=== PATIENT | female | born 1965 | race Caucasian/White ===

== ENCOUNTER 2017-04-28 17:11 | Inpatient (IN) | payer OTHER ==
[2017-04-28 19:22] VITALS: BMI 34.6
--- NOTE | 2017-04-28 20:41 | HP ---
COWS - Scale Resting Pulse: 0= [place] 80 or Below Sweatin= Chills/Flushing Restless Observation: 1= Difficult to Sit Still Pupil Size: 1= Pupils >than Normal Bone or Joint Aches: 1= Mild Discomfort Runny Nose/ Eye Tearin= Runny Nose/Eyes GI Upset > 30mins: 2= Nausea/Diarrhea Tremor Observation: 1= Tremor [place], Not Seen Yawning Observation: 0= None Anxiety or Irritability: 2=Irritable/Anxious Goose Flesh Skin: 3=Piloerection COWS Score: 14 Admission ROS S - HPI Chief Complaint: WITHDRAWAL SYMPTOMS Allergies/Adverse Reactions: Allergies Allergy/AdvReac Type Severity Reaction Status Date / Time aspirin Allergy Verified 07/01/12 17:32 ibuprofen [From Motrin] Allergy Verified 06/30/12 14:56 History of Present Illness: 51 y.o. woman with a 1 yr history of heroin dependence is here seeking detox for the first time. Exam Limitations: Physical Impairment (Ambulates with the use of a cane.) - Ebola screening Have you traveled outside of the country in the last 21 days: No (N) Have you had contact with anyone from an Ebola affected area: No Have you been sick,other than usual withdrawal symptoms: No Do you have a fever: No - Review of Systems Constitutional: Night Sweats, Changes in sleep EENT: reports: Blurred Vision, Tearing, Nose Congestion Respiratory: reports: No Symptoms reported Cardiac: reports: No Symptoms Reported GI: reports: Nausea, Abdominal cramping Musculoskeletal: reports: Back Pain Integumentary: reports: No Symptoms Reported Neuro: reports: Numbness Endocrine: reports: No Symptoms Reported Hematology: reports: No Symptoms Reported Psychiatric: reports: Orientated x3, Anxious, Depressed Other Systems: Reviewed and Negative Patient History - Patient Medical History Hx Anemia: No Hx Asthma: Yes Hx Chronic Obstructive Pulmonary Disease (COPD): No Hx Cancer: No Hx Cardiac Disorders: No Hx Congestive Heart Failure: No Hx Hypertension: Yes Hx Hypercholesterolemia: No Hx Pacemaker: No HX Cerebrovascular Accident: No Hx Seizures: No Hx Dementia: No Hx Diabetes: No Hx Gastrointestinal Disorders: No Hx Liver Disease: No Hx Genitourinary Disorders: No Hx Sexually Transmitted Disorders: No Hx Renal Disease (ESRD): No Hx Thyroid Disease: No Hx Human Immunodeficiency Virus (HIV): No Hx Hepatitis C: No Hx Depression: Yes Hx Suicide Attempt: No Hx Bipolar Disorder: No Hx Schizophrenia: No - Patient Surgical History Past Surgical History: Yes Hx Neurologic Surgery: No Hx Cataract Extraction: No Hx Cardiac Surgery: No Hx Lung Surgery: No Hx Breast Surgery: No Hx Breast Biopsy: No Hx Abdominal Surgery: No Hx Appendectomy: No Hx Cholecystectomy: No Hx Genitourinary Surgery: No Hx Section: Yes (X2) Hx Orthopedic Surgery: Yes (RIGHT KNEE ARTHROSCOPY,RIGHT HAND SURGERY) Hx Hysterectomy: No Anesthesia Reaction: No - PPD History Previous Implant?: Yes Documented Results: Negative w/o proof PPD to be Administered?: Yes - Reproductive History Patient is a Female of Child Bearing Age (11 -55 yrs old): Yes Last Menstrual Period: 06/18/12 Patient : No - Smoking Cessation Smoking history: Current every day smoker Have you smoked in the past 12 months: Yes Aproximately how many cigarettes per day: 3 Hx Chewing Tobacco Use: No Initiated information on smoking cessation: Yes 'Breaking Loose' booklet given: 04/28/17 - Substance & Tx. History Hx Alcohol Use: No Hx Substance Use: Yes Substance Use Type: Heroin Hx Substance Use Treatment: No - Substances Abused Heroin Route: Inhalation Frequency: Daily Amount used: 8 bags Age of first use: 50 Date of Last Use: 04/28/17 Family Disease History - Family Disease History Family Disease History: Diabetes: Grandparent, Father (), Mother ( ), Heart Disease: Grandparent, [place]: Father, Mother, Brother (Brain [place] ), Other: Sister (Heroin dependence ) Admission Physical Exam [facility] - Vital Signs Vital Signs: Vital Signs - 24 hr 04/28/17 19:17 Temperature 98.2 F Pulse Rate 76 Respiratory 20 Rate Blood Pressure 122/77 - Physical General Appearance: Yes: Tremorous, Irritable, Anxious HEENTM: Yes: Hearing grossly Normal, Normocephalic, Normal Voice Respiratory: Yes: Chest Non-Tender, Lungs Clear, Normal Breath Sounds, No Respiratory Distress, No Accessory Muscle Use Neck: Yes: No masses,lesions,Nodules, Trachea in good position Breast: Yes: Breast Exam Deferred Cardiology: Yes: Regular Rhythm, Regular Rate Abdominal: Yes: Non Tender, Flat, Soft Genitourinary: Yes: Other (No complaints reported) Back: Yes: Normal Inspection Musculoskeletal: Yes: Back pain, Joint swelling (Right knee), Other (Unsteady gait; ambulates with the use of a cane.) 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 NML intact, Alert, Motor Strength 5/5, Normal Mood /Affect, Normal Response Integumentary: Yes: Normal Color, Dry, Warm Lymphatic: Yes: Within Normal Limits - Diagnostic (1) Opioid dependence with withdrawal Current Visit: Yes Status: Chronic (2) Asthma Current Visit: Yes Status: Chronic (3) Hypertension Current Visit: Yes Status: Chronic (4) Nicotine dependence Current Visit: Yes Status: Chronic (5) Chronic knee pain Current Visit: Yes Status: Chronic (6) Back pain Current Visit: Yes Status: Chronic (7) Unsteady gait Current Visit: Yes Status: Chronic Cleared for Admission [facility] - Detox or Rehab [facility] Level of Care: Medically Managed Detox Regimen/Protocol: Methadone [facility] Breath Alcohol Content Breath Alcohol Content: 0 Urine Pregancy Test - Result Urine Test Results: Negative- NO Line Present Urine Drug Screen - Results Drug Screen Negative: No Urine Drug Screen Results: OPI-Opiates, BZO-Benzodiazepines, MTD-Methadone
[2017-04-28] MEDS ORDERED: guaiFENesin/D-METHORPHAN HB 10 ML UNIT-DOSE CUPS PO PRN (20:52)
[2017-04-28] MEDS ORDERED: diphenhydrAMINE HCL 50 MG CAPSULE PO PRN (20:52)
[2017-04-28] MEDS ORDERED: MAG HYDROX/AL HYDROX/SIMETH 30 ML UNIT-DOSE CUP PO PRN (20:52)
[2017-04-28] MEDS ORDERED: MAGNESIUM CITRATE 300 ML BOTTLE PO PRN (20:52)
[2017-04-28] MEDS ORDERED: METHADONE HCL 10 MG TABLET (FOR DETOX USE ONLY) PO ONE ×3 (20:52→23:30)
[2017-04-28] MEDS ORDERED: MENTHOL/PHENOL 1 EACH UD MM PRN (20:52)
[2017-04-28] MEDS ORDERED: MAGNESIUM HYDROX 2400MG/30ML ORAL SUSPENSION 30 ML CUP PO PRN (20:52)
[2017-04-28] MEDS ORDERED: ACETAMINOPHEN 325 MG TABLET (FP) PO PRN (20:52)
[2017-04-28] MEDS ORDERED: hydrOXYzine PAMOATE 50 MG CAPSULE (FP) PO PRN (20:52)
[2017-04-28] MEDS ORDERED: LOPERAMIDE HCL 2 MG CAPSULE PO PRN (20:52)
[2017-04-28] MEDS ORDERED: P-EPHED 60MG/TRIPROLIDI 2.5MG TABLET PO PRN (20:52)
[2017-04-28] MEDS: diazePAM 5 MG TABLET PO PRN (23:34)
[2017-04-29] MEDS: THIAMINE HCL 100 MG TABLET (FP) PO SCH ×2 (00:01→22:32)
[2017-04-29] MEDS ORDERED: METHADONE HCL 10 MG TABLET (FOR DETOX USE ONLY) PO ONE (10:00)
[2017-04-29 10:18] LABS: MCH 29.4 pg (25.7-33.7); MCHC 32.4 g/dl (32.0-36.0); MEAN CELL VOLUME 90.9 fl (80-96); MEAN PLT VOLUME 9.4 fl (7.5-11.1); PLATELET COUNT 239 K/MM3 (134-434); RDW 14.5 % (11.6-15.6); WHITE BLOOD COUNT 7.1 K/mm3 (4.0-10.0)
--- NOTE | 2017-04-29 10:39 | CONSULT ---
[facility] Psychiatric Consult - Data Date of interview: 04/29/17 Admission source: [facility] Identifying data: Lisa is 51 years old female with no psychiatoiric hospitalization history intoxicated with: Opioids, Methadone, Benzo and Nicotine Substance Abuse History: Urine Drug Screen Results: OPI-Opiates, BZO- Benzodiazepines, MTD-Methadone. - Smoking Cessation. Smoking history: Current every day smoker. Have you smoked in the past 12 months: Yes. Aproximately how many cigarettes per day: 3. Hx Chewing Tobacco Use: No. Initiated information on smoking cessation: Yes. 'Breaking Loose' booklet given: . - Substance & Tx. History. Hx Alcohol Use: No. Hx Substance Use: Yes. Substance Use Type: Heroin. Hx Substance Use Treatment: No. - Substances Abused. Heroin. Route: Inhalation. Frequency: Daily. Amount used: 8 bags. Age of first use: 50. Date of Last Use: 04/28/17 Medical History: Asthma, LBP, HTN, Unstable gait, Right Knee s/p surgery Psychiatric History: Denies past psychiatric management Physical/Sexual Abuse/Trauma History: Denies Additional Comment: Urine Drug Screen Results: OPI-Opiates, BZO-Benzodiazepines , MTD-Methadone Mental Status Exam - Mental Status Exam Alert and Oriented to: Person Cognitive Function: Fair Patient Appearance: Unkempt Mood: Sad Affect: Flat Patient Behavior: Sedated Speech Pattern: Delayed Voice Loudness: Mildly Soft/Quiet Thought Process: Circumstantial Thought Disorder: Being Controlled Hallucinations: Denies Suicidal Ideation: Denies Homicidal Ideation: Denies Insight/Judgement: Fair Sleep: Difficulty falling asleep Appetite: Weight gain Muscle strength/Tone: Mild Hypotonicity Gait/Station: Deferred Additional Comments: Urine Drug Screen Results: OPI-Opiates, BZO-Benzodiazepines , MTD-Methadone. Observation. Detox Unmit Care Protocol Psychiatric Findings - Problem List ([place] 1, 2,3) (1) Nicotine dependence Current Visit: Yes Status: Chronic (2) Opioid dependence with withdrawal Current Visit: Yes Status: Chronic (3) Methadone misuse Current Visit: Yes Status: Acute (4) Benzodiazepine abuse Current Visit: Yes Status: Acute (5) Drug-induced mood disorder Current Visit: Yes Status: Suspected - Initial Treatment Plan Initial Treatment Plan: Observation. Detox Unmit Care Protocol
[2017-04-29 10:42] LABS: ALBUMIN 2.7 g/dl (3.4-5.0); ALK PHOS 84 U/L (45-117); ANION GAP 6 (8-16); BILIRUBIN,TOTAL 0.7 mg/dL (0.2-1.0); CALCIUM 8.8 mg/dL (8.5-10.1); CO2 31 mmol/L (21-32); CREATININE 0.7 mg/dL (0.55-1.02); GLUCOSE,RANDOM 98 mg/dL (74-106); SGOT/AST 11 U/L (15-37); SGPT/ALT 13 U/L (12-78); TOT PROT 6.4 g/dl (6.4-8.2)
[2017-04-29] MEDS: AMLODIPINE BESYLATE PO SCH (11:31)
[2017-04-29] MEDS: BENAZEPRIL PO SCH (11:31)
[2017-04-29] MEDS: [UNRECOGNIZED DRUG - OTHER] PO SCH (11:31)
[2017-04-29] MEDS: diazePAM 5 MG TABLET PO PRN ×2 (11:31→22:33)
[2017-04-29] MEDS: PRENATAL VITAMINS W/ FOLIC ACID TABLET (FP) PO SCH (11:32)
[2017-04-29] MEDS: NICOTINE 14 MG/24 HOURS TOPICAL PATCH TD SCH ×2 (11:32→16:43)
--- NOTE | 2017-04-29 11:46 | PN ---
BHS COWS - Scale Resting Pulse: 1= [place] 81-100 Sweatin=Flushed/Facial Moisture Restless Observation: 1= Difficult to Sit Still Pupil Size: 0= Normal to Room Light Bone or Joint Aches: 2= Severe Diffuse Aches Runny Nose/ Eye Tearin= Runny Nose/Eyes GI Upset > 30mins: 1= Stomach Cramp Tremor Observation of Outstretched Hands: 2= Slight Tremor Visible Yawning Observation: 1= 1-2x During Session Anxiety or Irritability: 2=Irritable/Anxious Goose Flesh Skin: 3=Piloerection COWS Score: 17 BHS Progress Note (SOAP) Subjective: irritable agitation anxiety interrupted sleep body aches low back pain Objective: 04/29/17 11:45 Vital Signs Temperature 98.6 F 04/29/17 11:35 Pulse Rate 81 04/29/17 11:35 Respiratory Rate 20 04/29/17 11:35 Blood Pressure 161/100 04/29/17 11:35 O2 Sat by Pulse Oximetry (%) Laboratory Tests 04/29/17 04/29/17 07:00 07:00 WBC 7.1 D RBC 4.46 Hgb 13.1 D Hct 40.5 MCV 90.9 MCH 29.4 MCHC 32.4 RDW 14.5 Plt Count 239 D MPV 9.4 Sodium 143 Potassium 4.4 Chloride 106 Carbon Dioxide 31 Anion Gap 6 L BUN 11 D Creatinine 0.7 D Creat Clearance w eGFR > 60 Random Glucose 98 Calcium 8.8 Total Bilirubin 0.7 AST 11 L ALT 13 Alkaline Phosphatase 84 Total Protein 6.4 Albumin 2.7 L awake/alert lying in bed no acute distress monitor BP after pt receives her BP medication Assessment: 04/29/17 11:45 withdrawal sx Plan: continue detox increase fluids tyelnol prn lidocaine patch analgesic balm
[2017-04-29 12:07] LABS: HIV 1 & 2 AB NEGATIVE; HIV 1 AGp24 NEGATIVE
[2017-04-29] MEDS ORDERED: METHYL SALICYLATE/MENTHOL OINT 30 GM TUBE TP SCH (13:30)
[2017-04-29] MEDS: NICOTINE POLACRILEX 2 MG GUM BUC PRN (16:43)
[2017-04-29] MEDS: LIDOCAINE 5% TOPICAL PATCH TP SCH (17:00)
--- NOTE | 2017-04-29 20:01 | EKG ---
Test Reason : Blood Pressure : / mmHG Vent. Rate : 075 BPM Atrial Rate : 075 BPM P-R Int : 152 ms QRS Dur : 094 ms QT Int : 394 ms P-R-T Axes : 073 061 053 degrees QTc Int : 439 ms NORMAL SINUS RHYTHM POSSIBLE LEFT ATRIAL ENLARGEMENT BORDERLINE ECG WHEN COMPARED WITH ECG OF 30-JUN-2012 12:27, NO SIGNIFICANT CHANGE WAS FOUND Confirmed by BRITTNEY FARMER MD ([id number]) on 04/29/2017 8:00:46 PM Referred By: Confirmed By:BRITTNEY FARMER MD
[2017-04-29] MEDS ORDERED: LIDOCAINE PATCH REMOVAL MC SCH (22:00)
[2017-04-30] MEDS ORDERED: METHADONE HCL 5 MG TABLET (FOR DETOX USE ONLY) PO ONE (10:00)
[2017-04-30 10:42] VITALS: TEMP 98.1
[2017-04-30] MEDS: BENAZEPRIL PO SCH (10:51)
[2017-04-30] MEDS: PRENATAL VITAMINS W/ FOLIC ACID TABLET (FP) PO SCH (10:51)
[2017-04-30] MEDS: AMLODIPINE BESYLATE PO SCH (10:51)
[2017-04-30] MEDS: [UNRECOGNIZED DRUG - OTHER] PO SCH (10:51)
[2017-04-30] MEDS: diazePAM 5 MG TABLET PO PRN (10:51)
[2017-04-30] MEDS: LIDOCAINE 5% TOPICAL PATCH TP SCH (10:51)
[2017-04-30] MEDS: NICOTINE 14 MG/24 HOURS TOPICAL PATCH TD SCH (10:52)
[2017-04-30] MEDS: NICOTINE POLACRILEX 2 MG GUM BUC PRN (10:53)
--- NOTE | 2017-04-30 11:49 | PN ---
BHS COWS - Scale Resting Pulse: 0= [place] 80 or Below Sweatin=Flushed/Facial Moisture Restless Observation: 1= Difficult to Sit Still Pupil Size: 0= Normal to Room Light Bone or Joint Aches: 2= Severe Diffuse Aches Runny Nose/ Eye Tearin= Nasal Congestion GI Upset > 30mins: 2= Nausea/Diarrhea Tremor Observation of Outstretched Hands: 2= Slight Tremor Visible Yawning Observation: 2= >3x During Session Anxiety or Irritability: 2=Irritable/Anxious Goose Flesh Skin: 0=Smooth Skin COWS Score: 14 BHS Progress Note (SOAP) Subjective: chronic pain sweats shakes interrupted sleep Objective: 04/30/17 11:48 Vital Signs Temperature 98.1 F 04/30/17 10:42 Pulse Rate 78 04/30/17 10:42 Respiratory Rate 20 04/30/17 10:42 Blood Pressure 154/81 04/30/17 10:42 O2 Sat by Pulse Oximetry (%) Laboratory Tests 04/29/17 04/29/17 04/29/17 07:00 07:00 07:00 WBC 7.1 D RBC 4.46 Hgb 13.1 D Hct 40.5 MCV 90.9 MCH 29.4 MCHC 32.4 RDW 14.5 Plt Count 239 D MPV 9.4 Sodium 143 Potassium 4.4 Chloride 106 Carbon Dioxide 31 Anion Gap 6 L BUN 11 D Creatinine 0.7 D Creat Clearance w eGFR > 60 Random Glucose 98 Calcium 8.8 Total Bilirubin 0.7 AST 11 L ALT 13 Alkaline Phosphatase 84 Total Protein 6.4 Albumin 2.7 L RPR Titer Nonreactive Hepatitis C Antibody HIV 1&2 Antibody Screen HIV P24 Antigen 04/29/17 04/29/17 07:00 07:00 WBC RBC Hgb Hct MCV MCH MCHC RDW Plt Count MPV Sodium Potassium Chloride Carbon Dioxide Anion Gap BUN Creatinine Creat Clearance w eGFR Random Glucose Calcium Total Bilirubin AST ALT Alkaline Phosphatase Total Protein Albumin RPR Titer Hepatitis C Antibody <0.1 HIV 1&2 Antibody Screen Negative HIV P24 Antigen Negative awake/alert ambulating no acute distress Assessment: 04/30/17 11:48 withdrawal sx Plan: continue detox increase fluids f/u repeated u/a result
--- NOTE | 2017-04-30 14:04 | PN ---
S Progress Note Note: Pt states "I want to be home with my kids." Pt insisted on leaving and signed out AMA.
--- NOTE | 2017-04-30 14:07 | DS ---
[facility] Detox Discharge Summary Admission Date: 04/28/17 - History Present History: Opioid Dependence, Sedative Dependence - Physical Exam Results Vital Signs: Vital Signs Temperature 98.1 F 04/30/17 10:42 Pulse Rate 78 04/30/17 10:42 Respiratory Rate 20 04/30/17 10:42 Blood Pressure 154/81 04/30/17 10:42 O2 Sat by Pulse Oximetry (%) - Treatment Hospital Course: Discharged Condition Good - Medication Discharge Medications: Ambulatory Orders Olmesartan/Hydrochlorothiazide [Benicar Hct 20-12.5 mg Tablet] 1 each PO DAILY # 0 tablet 07/03/12 Amlodipine Besylate/Benazepril [Lotrel 2.5-10 mg Capsule] 1 cap PO DAILY - Diagnosis (1) Benzodiazepine abuse Current Visit: Yes Status: Chronic (2) Methadone misuse Current Visit: Yes Status: Chronic (3) Asthma Current Visit: Yes Status: Chronic Qualifiers: Asthma severity: mild intermittent Asthma complication type: uncomplicated Qualified Code(s): J45.20 - Mild intermittent asthma, uncomplicated (4) Back pain Current Visit: Yes Status: Chronic Qualifiers: Chronicity: chronic (5) Chronic knee pain Current Visit: Yes Status: Chronic (6) Hypertension Current Visit: Yes Status: Chronic Qualifiers: Hypertension type: essential hypertension Qualified Code(s): I10 - Essential (primary) hypertension (7) Nicotine dependence Current Visit: Yes Status: Chronic Qualifiers: Nicotine product type: cigarettes Substance use status: uncomplicated Qualified Code(s): F17.210 - Nicotine dependence, cigarettes, uncomplicated (8) Opioid dependence with withdrawal Current Visit: Yes Status: Chronic (9) Unsteady gait Current Visit: No Status: Chronic (10) Drug-induced mood disorder Current Visit: Yes Status: Suspected - AMA Did Patient Leave Against Medical Advice: Yes ("I am going home")
[2017-04-30 15:37] VITALS: BP 159/87; PULSE 95
[2017-04-30 17:32] LABS: URINE APPEARANCE CLEAR; URINE BILIRUBIN NEGATIVE (NEGATIVE); URINE BLOOD NEGATIVE (NEGATIVE); URINE COLOR LT. YELLOW; URINE GLUCOSE (UA) NEGATIVE (NEGATIVE); URINE KETONE NEGATIVE (NEGATIVE); URINE LEUK ESTERASE NEGATIVE (NEGATIVE); URINE NITRITE NEGATIVE (NEGATIVE); URINE PROTEIN NEGATIVE (NEGATIVE); URINE UROBILINOGEN 0.2 mg/dL (0.2-1.0)
[2017-05-01] MEDS ORDERED: METHADONE HCL 5 MG TABLET (FOR DETOX USE ONLY) PO ONE (10:00)
[2017-05-02] MEDS ORDERED: METHADONE HCL 10 MG TABLET (FOR DETOX USE ONLY) PO ONE (10:00)
[2017-05-03] MEDS ORDERED: METHADONE HCL 5 MG TABLET (FOR DETOX USE ONLY) PO ONE (06:00)
== END 2017-04-30 13:52 | disposition left against medical advice (07) | DRG 770 ==
LOC: YASAS 17:11 → Y6N 21:54
PROVIDERS: ADMIT Internal Medicine; ATTEND Internal Medicine
PROC: HZ2ZZZZ Detoxification Services for Substance Abuse Treatment (ICD-10-PCS; principal; 2017-04-28)
DX: F11.23 Opioid dependence with withdrawal (principal); F13.10 Sedative, hypnotic or anxiolytic abuse, uncomplicated; F17.210 Nicotine dependence, cigarettes, uncomplicated; F19.24 Other psychoactive substance dependence with psychoactive substance-induced mood disorder; J45.20 Mild intermittent asthma, uncomplicated; I10 Essential (primary) hypertension; M54.5 Low back pain; G89.29 Other chronic pain; R26.81 Unsteadiness on feet; Z88.6 Allergy status to analgesic agent
CPT/HCPCS: 36415; 80053; 81003; 85027; 86593; 86803; 87389; 93005; 93010

== ENCOUNTER 2019-01-22 08:31 | Inpatient (IN) | payer SELFPAY ==
[2019-01-22 08:59] VITALS: BMI 32.4
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
[2019-01-22] MEDS ORDERED: MAGNESIUM HYDROX 2400MG/30ML ORAL SUSPENSION 30 ML CUP PO PRN (09:55)
[2019-01-22] MEDS ORDERED: cloNIDine HCL 0.1 MG TABLET PO PRN (09:55)
[2019-01-22] MEDS ORDERED: MAGNESIUM CITRATE 300 ML BOTTLE PO PRN (09:55)
[2019-01-22] MEDS ORDERED: MENTHOL/PHENOL 1 EACH UD MM PRN (09:55)
[2019-01-22] MEDS ORDERED: MAG HYDROX/AL HYDROX/SIMETH 30 ML UNIT-DOSE CUP PO PRN (09:55)
[2019-01-22] MEDS ORDERED: hydrOXYzine PAMOATE 25 MG CAPSULE (FP) PO PRN (09:55)
[2019-01-22 11:17] LABS: HEMATOCRIT 45.7 % (32.4-45.2); HEMOGLOBIN 15.2 GM/dL (10.7-15.3); MCH 31.1 pg (25.7-33.7); MCHC 33.3 g/dl (32.0-36.0); MEAN CELL VOLUME 93.6 fl (80-96); MEAN PLT VOLUME 9.6 fl (7.5-11.1); PLATELET COUNT 234 K/MM3 (134-434); RBC 4.88 M/mm3 (3.60-5.2); RDW 14.1 % (11.6-15.6); WHITE BLOOD COUNT 6.7 K/mm3 (4.0-10.0)
[2019-01-22 11:32] LABS: ALBUMIN 3.8 g/dl (3.4-5.0); BILIRUBIN,TOTAL 0.5 mg/dL (0.2-1); CALCIUM 9.6 mg/dL (8.5-10.1); CREATININE 0.8 mg/dL (0.55-1.3); POTASSIUM 3.7 mmol/L (3.5-5.1); TOT PROT 7.6 g/dl (6.4-8.2)
[2019-01-22] MEDS: NICOTINE 21 MG/24 HOURS TOPICAL PATCH TD SCH (11:32)
[2019-01-22] MEDS: amLODIPine BESYLATE 5 MG TABLET (FP) PO SCH (11:32)
[2019-01-22] MEDS: PRENATAL VITAMINS W/ FOLIC ACID TABLET (FP) PO SCH (11:32)
[2019-01-22] MEDS: clonazePAM 0.5 MG TABLET PO PRN ×2 (11:42→22:12)
[2019-01-22] MEDS: OXYBUTYNIN CHLORIDE 5 MG TABLET PO SCH ×2 (12:47→22:12)
[2019-01-22] MEDS: THIAMINE HCL 100 MG TABLET (FP) PO SCH (22:12)
[2019-01-22] MEDS: MELATONIN 5 MG TABLETS PO PRN (22:27)
[2019-01-22] MEDS ORDERED: METHADONE HCL 10 MG TABLET (FOR DETOX USE ONLY) PO ONE (23:00)
[2019-01-23] MEDS: METHOCARBAMOL 500 MG TABLET PO PRN (00:55)
[2019-01-23] MEDS: ACETAMINOPHEN 325 MG TABLET (FP) PO PRN (00:55)
[2019-01-23] MEDS: clonazePAM 0.5 MG TABLET PO PRN ×3 (06:08→22:10)
[2019-01-23] MEDS ORDERED: METHADONE HCL 5 MG TABLET (FOR DETOX USE ONLY) PO ONE (10:00)
[2019-01-23] MEDS: PRENATAL VITAMINS W/ FOLIC ACID TABLET (FP) PO SCH (10:19)
[2019-01-23] MEDS: OXYBUTYNIN CHLORIDE 5 MG TABLET PO SCH ×2 (10:19→22:10)
[2019-01-23] MEDS: amLODIPine BESYLATE 5 MG TABLET (FP) PO SCH (10:20)
[2019-01-23] MEDS: NICOTINE 21 MG/24 HOURS TOPICAL PATCH TD SCH (10:20)
--- NOTE | 2019-01-23 11:38 | PN ---
[facility] COWS - Scale Resting Pulse: 0= [place] 80 or Below Sweatin= Chills/Flushing Restless Observation: 1= Difficult to Sit Still Pupil Size: 1= Pupils >than Normal Bone or Joint Aches: 1= Mild Discomfort Runny Nose/ Eye Tearin= Nasal Congestion GI Upset > 30mins: 1= Stomach Cramp Tremor Observation of Outstretched Hands: 1= Tremor [place], Not Seen Yawning Observation: 0= None Anxiety or Irritability: 1=Feels Anxious/Irritable Goose Flesh Skin: 0=Smooth Skin COWS Score: 8 BHS Progress Note (SOAP) Subjective: mild body aches otherwise doing ok with methadone detox actively engage with peers discuss aftercare Objective: 01/23/19 11:41 Vital Signs Temperature 97.1 F L 01/23/19 10:30 Pulse Rate 75 01/23/19 10:30 Respiratory Rate 18 01/23/19 10:30 Blood Pressure 138/84 01/23/19 10:30 O2 Sat by Pulse Oximetry (%) Laboratory Last Values WBC 6.7 K/mm3 (4.0-10.0) 01/22/19 10:00 RBC 4.88 M/mm3 (3.60-5.2) 01/22/19 10:00 Hgb 15.2 GM/dL (10.7-15.3) 01/22/19 10:00 Hct 45.7 % (32.4-45.2) H 01/22/19 10:00 MCV 93.6 fl (80-96) 01/22/19 10:00 MCH 31.1 pg (25.7-33.7) 01/22/19 10:00 MCHC 33.3 g/dl (32.0-36.0) 01/22/19 10:00 RDW 14.1 % (11.6-15.6) 01/22/19 10:00 Plt Count 234 K/MM3 (134-434) 01/22/19 10:00 MPV 9.6 fl (7.5-11.1) 01/22/19 10:00 Sodium 140 mmol/L (136-145) 01/22/19 10:00 Potassium 3.7 mmol/L (3.5-5.1) 01/22/19 10:00 Chloride 107 mmol/L (98-107) 01/22/19 10:00 Carbon Dioxide 29 mmol/L (21-32) 01/22/19 10:00 Anion Gap 5 MMOL/L (8-16) L 01/22/19 10:00 BUN 14 mg/dL (7-18) 01/22/19 10:00 Creatinine 0.8 mg/dL (0.55-1.3) 01/22/19 10:00 Est GFR (CKD-EPI)AfAm 97.55 01/22/19 10:00 Est GFR (CKD-EPI)NonAf 84.17 01/22/19 10:00 Random Glucose 96 mg/dL (74-106) 01/22/19 10:00 Calcium 9.6 mg/dL (8.5-10.1) 01/22/19 10:00 Total Bilirubin 0.5 mg/dL (0.2-1) 01/22/19 10:00 AST 14 U/L (15-37) L 01/22/19 10:00 ALT 17 U/L (13-61) 01/22/19 10:00 Alkaline Phosphatase 88 U/L (45-117) 01/22/19 10:00 Total Protein 7.6 g/dl (6.4-8.2) 01/22/19 10:00 Albumin 3.8 g/dl (3.4-5.0) 01/22/19 10:00 RPR Titer Nonreactive (NONREACTIVE) 01/22/19 10:00 lab noted Assessment: 01/23/19 11:42 opiate withdrawal sx Plan: continue detox
[2019-01-23] MEDS: THIAMINE HCL 100 MG TABLET (FP) PO SCH (22:10)
[2019-01-23] MEDS: MELATONIN 5 MG TABLETS PO PRN (22:11)
[2019-01-24] MEDS: clonazePAM 0.5 MG TABLET PO PRN ×2 (08:39→20:05)
[2019-01-24] MEDS ORDERED: METHADONE HCL 10 MG TABLET (FOR DETOX USE ONLY) PO ONE (10:00)
[2019-01-24] MEDS: OXYBUTYNIN CHLORIDE 5 MG TABLET PO SCH ×2 (10:52→22:27)
[2019-01-24] MEDS: amLODIPine BESYLATE 5 MG TABLET (FP) PO SCH (10:52)
[2019-01-24] MEDS: NICOTINE 21 MG/24 HOURS TOPICAL PATCH TD SCH (10:52)
[2019-01-24] MEDS: PRENATAL VITAMINS W/ FOLIC ACID TABLET (FP) PO SCH (10:52)
[2019-01-24] MEDS ORDERED: NICOTINE POLACRILEX 4 MG GUM BUC PRN (13:23)
[2019-01-24] MEDS: METHOCARBAMOL 500 MG TABLET PO PRN (13:27)
--- NOTE | 2019-01-24 13:28 | PN ---
[facility] COWS - Scale Resting Pulse: 1= [place] 81-100 Sweatin= Chills/Flushing Restless Observation: 0= Sits Still Pupil Size: 0= Normal to Room Light Bone or Joint Aches: 1= Mild Discomfort Runny Nose/ Eye Tearin= None GI Upset > 30mins: 0= None Tremor Observation of Outstretched Hands: 1= Tremor [place], Not Seen Yawning Observation: 0= None Anxiety or Irritability: 1=Feels Anxious/Irritable Goose Flesh Skin: 0=Smooth Skin COWS Score: 5 BHS Progress Note (SOAP) Subjective: feeling better today more energy social with peers in day room Objective: 01/24/19 13:29 Laboratory Last Values WBC 6.7 K/mm3 (4.0-10.0) 01/22/19 10:00 RBC 4.88 M/mm3 (3.60-5.2) 01/22/19 10:00 Hgb 15.2 GM/dL (10.7-15.3) 01/22/19 10:00 Hct 45.7 % (32.4-45.2) H 01/22/19 10:00 MCV 93.6 fl (80-96) 01/22/19 10:00 MCH 31.1 pg (25.7-33.7) 01/22/19 10:00 MCHC 33.3 g/dl (32.0-36.0) 01/22/19 10:00 RDW 14.1 % (11.6-15.6) 01/22/19 10:00 Plt Count 234 K/MM3 (134-434) 01/22/19 10:00 MPV 9.6 fl (7.5-11.1) 01/22/19 10:00 Sodium 140 mmol/L (136-145) 01/22/19 10:00 Potassium 3.7 mmol/L (3.5-5.1) 01/22/19 10:00 Chloride 107 mmol/L (98-107) 01/22/19 10:00 Carbon Dioxide 29 mmol/L (21-32) 01/22/19 10:00 Anion Gap 5 MMOL/L (8-16) L 01/22/19 10:00 BUN 14 mg/dL (7-18) 01/22/19 10:00 Creatinine 0.8 mg/dL (0.55-1.3) 01/22/19 10:00 Est GFR (CKD-EPI)AfAm 97.55 01/22/19 10:00 Est GFR (CKD-EPI)NonAf 84.17 01/22/19 10:00 Random Glucose 96 mg/dL (74-106) 01/22/19 10:00 Calcium 9.6 mg/dL (8.5-10.1) 01/22/19 10:00 Total Bilirubin 0.5 mg/dL (0.2-1) 01/22/19 10:00 AST 14 U/L (15-37) L 01/22/19 10:00 ALT 17 U/L (13-61) 01/22/19 10:00 Alkaline Phosphatase 88 U/L (45-117) 01/22/19 10:00 Total Protein 7.6 g/dl (6.4-8.2) 01/22/19 10:00 Albumin 3.8 g/dl (3.4-5.0) 01/22/19 10:00 RPR Titer Nonreactive (NONREACTIVE) 01/22/19 10:00 lab noted Assessment: 01/24/19 13:29 withdrawal sx Plan: continue detox
[2019-01-24] MEDS: cloNIDine HCL 0.1 MG TABLET PO PRN ×2 (15:48→22:27)
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
[2019-01-24] MEDS: ACETAMINOPHEN 325 MG TABLET (FP) PO PRN (20:06)
[2019-01-24] MEDS ORDERED: traZODone HCL 50 MG TABLET (FP) PO SCH (22:00)
[2019-01-24] MEDS: THIAMINE HCL 100 MG TABLET (FP) PO SCH (22:27)
[2019-01-24] MEDS: MELATONIN 5 MG TABLETS PO PRN (22:28)
[2019-01-25] MEDS ORDERED: METHADONE HCL 5 MG TABLET (FOR DETOX USE ONLY) PO ONE (06:00)
[2019-01-25] MEDS: clonazePAM 0.5 MG TABLET PO PRN (07:16)
[2019-01-25 09:37] VITALS: BP 135/89; PULSE 86; TEMP 98.4
[2019-01-25] MEDS: OXYBUTYNIN CHLORIDE 5 MG TABLET PO SCH (09:43)
[2019-01-25] MEDS: amLODIPine BESYLATE 5 MG TABLET (FP) PO SCH (09:43)
[2019-01-25] MEDS: PRENATAL VITAMINS W/ FOLIC ACID TABLET (FP) PO SCH (09:44)
[2019-01-25] MEDS: NICOTINE 21 MG/24 HOURS TOPICAL PATCH TD SCH (09:44)
[2019-01-25] MEDS ORDERED: CITALOPRAM HYDROBROMIDE 20 MG TABLET (FP) PO SCH (10:00)
--- NOTE | 2019-01-25 13:48 | DS ---
[facility] Detox Discharge Summary Admission Date: 01/22/19 Discharge Date: 01/25/19 - History Present History: Opioid Dependence Additional Comments: 53 years old female admitted on 01/22/19 for opiate withdrawal stabilization completed detox regimen aftercare community self help support group Pertinent Past History: bring in medication list and lab report to follow up appointment - Physical Exam Results Vital Signs: Vital Signs Temperature 98.4 F 01/25/19 09:36 Pulse Rate 86 01/25/19 09:36 Respiratory Rate 18 01/25/19 09:36 Blood Pressure 135/89 01/25/19 09:36 O2 Sat by Pulse Oximetry (%) Pertinent Admission Physical Exam Findings: opiate withdrawal sx Laboratory Last Values WBC 6.7 K/mm3 (4.0-10.0) 01/22/19 10:00 RBC 4.88 M/mm3 (3.60-5.2) 01/22/19 10:00 Hgb 15.2 GM/dL (10.7-15.3) 01/22/19 10:00 Hct 45.7 % (32.4-45.2) H 01/22/19 10:00 MCV 93.6 fl (80-96) 01/22/19 10:00 MCH 31.1 pg (25.7-33.7) 01/22/19 10:00 MCHC 33.3 g/dl (32.0-36.0) 01/22/19 10:00 RDW 14.1 % (11.6-15.6) 01/22/19 10:00 Plt Count 234 K/MM3 (134-434) 01/22/19 10:00 MPV 9.6 fl (7.5-11.1) 01/22/19 10:00 Sodium 140 mmol/L (136-145) 01/22/19 10:00 Potassium 3.7 mmol/L (3.5-5.1) 01/22/19 10:00 Chloride 107 mmol/L (98-107) 01/22/19 10:00 Carbon Dioxide 29 mmol/L (21-32) 01/22/19 10:00 Anion Gap 5 MMOL/L (8-16) L 01/22/19 10:00 BUN 14 mg/dL (7-18) 01/22/19 10:00 Creatinine 0.8 mg/dL (0.55-1.3) 01/22/19 10:00 Est GFR (CKD-EPI)AfAm 97.55 01/22/19 10:00 Est GFR (CKD-EPI)NonAf 84.17 01/22/19 10:00 Random Glucose 96 mg/dL (74-106) 01/22/19 10:00 Calcium 9.6 mg/dL (8.5-10.1) 01/22/19 10:00 Total Bilirubin 0.5 mg/dL (0.2-1) 01/22/19 10:00 AST 14 U/L (15-37) L 01/22/19 10:00 ALT 17 U/L (13-61) 01/22/19 10:00 Alkaline Phosphatase 88 U/L (45-117) 01/22/19 10:00 Total Protein 7.6 g/dl (6.4-8.2) 01/22/19 10:00 Albumin 3.8 g/dl (3.4-5.0) 01/22/19 10:00 RPR Titer Nonreactive (NONREACTIVE) 01/22/19 10:00 lab noted - Treatment Hospital Course: Detox Protocol Followed, Detoxed Safely, Responded well, Discharged Condition Good, Rehab Referral Accepted Patient has Accepted a Rehab Referral to: community self help support group - Medication Discharge Medications: Ambulatory Orders Olmesartan/Hydrochlorothiazide [Benicar Hct 20-12.5 mg Tablet] 1 each PO DAILY # 0 tablet 07/03/12 Amlodipine Besylate/Benazepril [Lotrel 2.5-10 mg Capsule] 1 cap PO DAILY Oxybutynin Chloride [Oxybutynin Chloride ER] 10 mg PO DAILY 01/22/19 - Diagnosis (1) Asthma Status: Chronic Qualifiers: Asthma severity: mild Asthma persistence: intermittent Asthma complication type: with status asthmaticus Qualified Code(s): J45.22 - Mild intermittent asthma with status asthmaticus (2) Hypertension Status: Chronic Qualifiers: Hypertension type: essential hypertension Qualified Code(s): I10 - Essential (primary) hypertension (3) Nicotine dependence Status: Acute Qualifiers: Nicotine product type: cigarettes Substance use status: in withdrawal Qualified Code(s): F17.213 - Nicotine dependence, cigarettes, with withdrawal (4) Opioid dependence with withdrawal Status: Acute - AMA Did Patient Leave Against Medical Advice: No
== END 2019-01-25 09:45 | disposition home or self-care (01) | DRG 773 ==
LOC: YASAS 08:31 → Y3N 10:21
PROVIDERS: ADMIT Surgery; ATTEND Surgery
PROC: HZ2ZZZZ Detoxification Services for Substance Abuse Treatment (ICD-10-PCS; principal; 2019-01-22)
DX: F11.23 Opioid dependence with withdrawal (principal); F13.230 Sedative, hypnotic or anxiolytic dependence with withdrawal, uncomplicated; F14.20 Cocaine dependence, uncomplicated; F17.210 Nicotine dependence, cigarettes, uncomplicated; F19.24 Other psychoactive substance dependence with psychoactive substance-induced mood disorder; I10 Essential (primary) hypertension; J45.22 Mild intermittent asthma with status asthmaticus; G47.00 Insomnia, unspecified; R73.03 Prediabetes; M25.561 Pain in right knee; M25.562 Pain in left knee; G89.29 Other chronic pain; E66.9 Obesity, unspecified; Z68.32 Body mass index [BMI] 32.0-32.9, adult; Z88.6 Allergy status to analgesic agent; Z91.19 Patient's noncompliance with other medical treatment and regimen; Z91.5 Personal history of self-harm
CPT/HCPCS: 36415; 80053; 85027; 86593; J0735